=== PATIENT | female | born 1985 ===

== ENCOUNTER 2022-05-17 13:58 | Emergency (ER) | payer SELFPAY | END 2022-05-17 15:00 | LOC: MW.ED 13:58 | DX: Z53.21 Procedure and treatment not carried out due to patient leaving prior to being seen by health care provider (principal) ==

== ENCOUNTER 2022-11-17 12:21 | Emergency (ER) | payer SELFPAY | END 2022-11-17 13:06 | LOC: MW.ED 12:21 | DX: U07.1 COVID-19 (principal); E11.9 Type 2 diabetes mellitus without complications; Z79.4 Long term (current) use of insulin | CPT/HCPCS: 99283 ==

== ENCOUNTER 2023-01-17 23:22 | Emergency (ER) | payer SELFPAY | END 2023-01-18 00:01 | disposition left against medical advice (07) | LOC: MW.ED 23:22 | DX: Z53.21 Procedure and treatment not carried out due to patient leaving prior to being seen by health care provider (principal) ==

== ENCOUNTER 2023-01-20 21:45 | Emergency (ER) | payer OTHER ==
[2023-01-20 22:46] LABS: APPEARANCE,URINE CLOUDY; BILIRUBIN,URINE NEGATIVE (NEGATIVE); COLOR,URINE YELLOW; GLUCOSE,URINE NEGATIVE (NEGATIVE); KETONES,URINE NEGATIVE (NEGATIVE); LEUKOCYTE ESTERASE,URINE SMALL (NEGATIVE); NITRITE,URINE NEGATIVE (NEGATIVE); OCCULT BLOOD,URINE LARGE (NEGATIVE); PROTEIN,URINE TRACE mg/dL (NEGATIVE)
[2023-01-20 22:58] LABS: BACTERIA,URINE 4+ (NEGATIVE); EPITHELIAL CELLS,URINE MODERATE (NONE-FEW); MUCUS,URINE LIGHT (NONE-MOD); RBC,URINE 30-40 (0-2/HPF); WBC,URINE 25-30 (0-5/HPF)
== END 2023-01-21 00:31 ==
LOC: MW.ED 21:45
DX: R55 Syncope and collapse (principal); N39.0 Urinary tract infection, site not specified; E10.9 Type 1 diabetes mellitus without complications; Z88.2 Allergy status to sulfonamides; Z88.0 Allergy status to penicillin; Z02.89 Encounter for other administrative examinations
CPT/HCPCS: 81001; 99284